=== PATIENT | male | born 1985 | race Asian ===

== ENCOUNTER → 2017-04-11 | Day surgery (SDC) | payer OTHER ==
[~2017-04-11] VITALS: Ht 175.3 cm; Wt 81.6 kg
--- NOTE | 2017-04-11 10:05 | Operative Report ---
Operative/Inv Procedure Report Surgery Date: 04/11/17 Name of Procedure: tonsillectomy nasopharyngoscopy Pre-Operative Diagnosis: chronic tonsillopharyngitis Post-Operative Diagnosis: chronic tonsillitis Estimated Blood Loss: less than 50ml Surgeon/Senior [employer] Database Developer: LAVONNE BECKMAN MD Anesthesia: general endotracheal tube Specimens: tonsils, right and left Complications: none Condition: good Operative Indication: chronic infection Operative/Procedure Note Note: The patient on the operating table a timeout was performed to confirm the correct patient and procedure. Gen. anesthesia was then induced with an oral tracheal tube. The head and body were draped with sterile towels and sheets. Using a McIvor mouthgag and headlight the oropharynx was exposed and examined. Red Lucero catheters were passed through the nose and exited from the mouth to retract the palate and then the nasopharynx was examined indirectly by mirror. No adenoid tissue was noted. The tonsils were then removed using a snare and dissection technique. The tonsil was grasped with a tonsil tenaculum and retracted medially. A #12 scalpel blade was used to perform an anterior tonsillar pillar mucosal incision and then dissection carried down to the capsule with the Metzenbaum scissors. The superior and mid pole of the tonsils were dissected from the fossa with a Tripp knife and then the inferior pole was transected with a tonsil snare. Hemostasis was obtained with suction cautery and packing A similar procedure was performed on the opposite side. The oropharynx was then irrigated, there was no evidence of active bleeding and consequently the procedure was ended. An orogastric tube was passed into the stomach to evacuate the stomach of any swallow contents. He tolerated the procedure well. He was then awakened extubated and transferred to recovery in satisfactory condition. Used to be discharged to home on Tylenol and Hycet elixir for pain and amoxicillin suspension. He is to maintain a liquid to soft diet and limited activity for the next 10 days to 2 weeks with a follow-up appointment in approximately 1 week in the office Findings: The nasopharynx was clear The tonsils were moderately hypertrophied and were quite cryptic and contained concretions within the crypts Discharge Disposition: PACU CC: ALIYA CALLES MD
== END ==
LOC: STS 01:12
DX: J35.01 Chronic tonsillitis (principal)
CPT/HCPCS: C9399; J2250